=== PATIENT | female | born 1970 | race Caucasian/White ===

== ENCOUNTER 2017-02-25 23:46 | Emergency (ER) | payer OTHER ==
[~2017-02-25 23:46] MED LIST: ANTIVERT12.5 MG PO; ZOF4 PO
[2017-02-26 01:15] VITALS: BP 127/84
== END 2017-02-26 01:15 | disposition home or self-care (01) ==
LOC: ED 23:46
DX: S80.11XA Contusion of right lower leg, initial encounter (principal); E03.9 Hypothyroidism, unspecified; E78.5 Hyperlipidemia, unspecified; F32.9 Major depressive disorder, single episode, unspecified; W22.03XA Walked into furniture, initial encounter; Y93.01 Activity, walking, marching and hiking; Y92.89 Other specified places as the place of occurrence of the external cause; Y99.8 Other external cause status

== ENCOUNTER 2017-04-21 20:19 | Emergency (ER) | payer OTHER ==
[~2017-04-21] VITALS: Ht 160 cm; Wt 113.4 kg
[2017-04-21 22:17] VITALS: BP 110/52
== END 2017-04-21 22:17 | disposition home or self-care (01) ==
LOC: ED 20:19
DX: J01.90 Acute sinusitis, unspecified (principal); J06.9 Acute upper respiratory infection, unspecified

== ENCOUNTER 2017-10-26 17:30 | Emergency (ER) | payer SELFPAY ==
[~2017-10-26] VITALS: Ht 157.5 cm; Wt 109.8 kg
[2017-10-26 17:36] VITALS: Ht 157.5 cm; Wt 109.8 kg
[2017-10-26 20:08] LABS: BASOPHIL % 0.3 % (0-2); PLATELET COUNT 213 x10^3mcL (130-400); RED CELL DISTRIBUTION WIDTH 13.6 % (11.5-14.5)
[2017-10-26 20:17] LABS: CALCIUM 8.8 mg/dL (8.5-10.1); CARBON DIOXIDE 32.3 mmol/L (21-32); CHLORIDE SERUM 105 mmol/L (98-107); CREATININE SERUM 0.8 mg/dL (0.6-1.0); GFR1 > 60 mL/min; GLUCOSE SERUM 93 mg/dL (74-106); POTASSIUM SERUM 3.7 mmol/L (3.5-5.1); SODIUM SERUM 140 mmol/L (136-145)
[2017-10-26 20:21] LABS: ALKALINE PHOSPHATASE 83 U/L (46-116); ALT/SGPT 37 U/L (14-59); AST/SGOT 18 U/L (15-37); BILIRUBIN TOTAL 0.27 mg/dL (0.20-1.00); MAGNESIUM 2.1 mg/dL (1.8-2.4); TOTAL PROTEIN, SERUM 6.9 g/dL (6.4-8.2)
[2017-10-26 20:27] LABS: ALBUMIN 3.3 g/dL (3.4-5.0)
[2017-10-26 20:37] LABS: AMPHETAMINE QUAL UR NONE DETECTED (NEG <=1000)
[2017-10-26 20:47] LABS: FREE T4 0.93 ng/dL (0.76-1.46); FREE THYROXINE INDEX 2.1 ug/dL (1.4-4.5); T4(THYROXINE) 5.6 ug/dL (4.7-13.3)
[2017-10-26 20:58] LABS: T3 TOTAL 0.88 ng/mL
[2017-10-26 22:16] VITALS: BP 113/63
== END 2017-10-26 22:16 | disposition home or self-care (01) ==
LOC: ED 17:30
PROVIDERS: Emergency Medicine
DX: R53.1 Weakness (principal); R55 Syncope and collapse; E86.0 Dehydration; E66.9 Obesity, unspecified; R42 Dizziness and giddiness; R00.2 Palpitations; E03.9 Hypothyroidism, unspecified; Z68.41 Body mass index [BMI] 40.0-44.9, adult; Z86.79 Personal history of other diseases of the circulatory system
CPT/HCPCS: 83880; 84439; J7030; Q0092

== ENCOUNTER 2018-03-18 23:20 | Emergency (ER) | payer SELFPAY ==
[~2018-03-18] VITALS: Ht 157.5 cm; Wt 108.9 kg
[2018-03-18 23:22] VITALS: Ht 157.5 cm; Wt 108.9 kg
[2018-03-19 00:31] LABS: BASOPHIL % 0.4 % (0-2); PLATELET COUNT 246 x10^3mcL (130-400); RED CELL DISTRIBUTION WIDTH 12.9 % (11.5-14.5)
[2018-03-19 00:33] LABS: UA SPECIFIC GRAVITY >=1.030 (1.005-1.035); microscopic required? YES; urine erythrocyte 3+ (NEGATIVE)
[2018-03-19 00:35] LABS: CALCIUM 8.7 mg/dL (8.5-10.1); CARBON DIOXIDE 31.3 mmol/L (21-32); CHLORIDE SERUM 106 mmol/L (98-107); CREATININE SERUM 0.9 mg/dL (0.6-1.0); GFR1 > 60 mL/min; GLUCOSE SERUM 112 mg/dL (74-106); POTASSIUM SERUM 3.6 mmol/L (3.5-5.1); SODIUM SERUM 141 mmol/L (136-145)
[2018-03-19 00:40] LABS: ALBUMIN 3.7 g/dL (3.4-5.0); ALKALINE PHOSPHATASE 97 U/L (46-116); ALT/SGPT 35 U/L (14-59); AST/SGOT 19 U/L (15-37); BILIRUBIN TOTAL 0.4 mg/dL (0.20-1.00); LIPASE 137 IU/L (73-393); TOTAL PROTEIN, SERUM 7.7 g/dL (6.4-8.2)
[2018-03-19 03:36] VITALS: BP 123/67
== END 2018-03-19 03:36 | disposition home or self-care (01) ==
LOC: ED 23:20
PROVIDERS: Emergency Medicine
DX: K52.9 Noninfective gastroenteritis and colitis, unspecified (principal); E03.9 Hypothyroidism, unspecified
CPT/HCPCS: J2270; Q9967

== ENCOUNTER 2019-03-28 16:50 | Emergency (ER) | payer SELFPAY ==
[~2019-03-28] VITALS: Ht 160 cm; Wt 107.5 kg
[2019-03-28 17:08] VITALS: Ht 160 cm; Wt 107.5 kg
[2019-03-28 19:48] LABS: BASOPHIL % 0.4 % (0-2); PLATELET COUNT 210 x10^3mcL (130-400); RED CELL DISTRIBUTION WIDTH 13.8 % (11.5-14.5)
[2019-03-28 19:56] LABS: CALCIUM 8.4 mg/dL (8.5-10.1); CARBON DIOXIDE 32.4 mmol/L (21-32); CHLORIDE SERUM 106 mmol/L (98-107); CREATININE SERUM 0.8 mg/dL (0.6-1.0); GFR1 > 60 mL/min; GLUCOSE SERUM 103 mg/dL (74-106); POTASSIUM SERUM 3.7 mmol/L (3.5-5.1); SODIUM SERUM 142 mmol/L (136-145)
[2019-03-28 20:09] LABS: ALKALINE PHOSPHATASE 111 U/L (46-116); ALT/SGPT 31 U/L (14-59); AST/SGOT 12 U/L (15-37); BILIRUBIN TOTAL 0.13 mg/dL (0.20-1.00); FREE T4 0.91 ng/dL (0.76-1.46); TOTAL PROTEIN, SERUM 7.3 g/dL (6.4-8.2)
[2019-03-28 20:10] LABS: ALBUMIN 3.3 g/dL (3.4-5.0)
[2019-03-28 22:45] VITALS: BP 122/56
== END 2019-03-28 22:45 | disposition home or self-care (01) ==
LOC: ED 16:50
PROVIDERS: Student in an Organized Health Care Education/Training Program
DX: M79.604 Pain in right leg (principal); M79.605 Pain in left leg; R22.43 Localized swelling, mass and lump, lower limb, bilateral; E03.9 Hypothyroidism, unspecified; F32.9 Major depressive disorder, single episode, unspecified; Z98.890 Other specified postprocedural states
CPT/HCPCS: 84439; 85378; J1885; Q0092

== ENCOUNTER 2020-04-03 23:39 | Emergency (ER) | payer SELFPAY ==
[~2020-04-03] VITALS: Ht 160 cm; Wt 105.8 kg
[2020-04-03 23:42] VITALS: BP 125/86; Ht 160 cm; Wt 105.8 kg
== END 2020-04-04 00:32 | disposition home or self-care (01) ==
LOC: ED 23:39
DX: R06.02 Shortness of breath (principal); R53.1 Weakness; J02.9 Acute pharyngitis, unspecified; R51 Headache; Z20.828 Contact with and (suspected) exposure to other viral communicable diseases
CPT/HCPCS: U0003-CS